=== PATIENT | female | born 1965 | race Caucasian/White ===

== ENCOUNTER 2018-08-29 07:49 | Emergency (ER) | payer OTHER ==
[~2018-08-29] VITALS: Ht 152.4 cm; Wt 81.7 kg
[~2018-08-29 07:49] MED LIST: AFRIN15 ML NS; HYDROCODONE-APA1 TA1 PO; IBUPROFEN 800800 M1 PO; LORATIDINE 10 M10 M1 PO; MEDROLDOSEPACK PO; NOHOMEMEDICATIONS; PROBIOTIC1 EAC1 PO; ZITHROMAX TRI-500 MG PO
[2018-08-29] MEDS ORDERED: VISTARIL 25 MG25 M1 PO (08:11)
[2018-08-29] MEDS ORDERED: SYNALAR120 GM TOP (08:11)
[2018-08-29 08:47] VITALS: BP 156/70
== END 2018-08-29 08:48 | disposition home or self-care (01) ==
LOC: M.ERS 07:49
DX: L25.9 Unspecified contact dermatitis, unspecified cause (principal); Z90.89 Acquired absence of other organs; Z90.49 Acquired absence of other specified parts of digestive tract

== ENCOUNTER 2018-08-31 10:46 | Emergency (ER) | payer OTHER ==
[~2018-08-31] VITALS: Ht 152.4 cm; Wt 86.2 kg
[~2018-08-31 10:46] MED LIST changes: +SYNALAR120 GM TOP; +VISTARIL 25 MG25 M1 PO
[2018-08-31] MEDS ORDERED: UNICOMPLEX M TA1 TA1 PO (10:57)
[2018-08-31] MEDS ORDERED: MUCINEX600 MG PO (10:57)
[2018-08-31] MEDS ORDERED: HYDROXYZINE HCL25 M1 PO (11:20)
[2018-08-31 11:39] VITALS: BP 116/68
== END 2018-08-31 11:40 | disposition home or self-care (01) ==
LOC: M.ERS 10:46
DX: L23.7 Allergic contact dermatitis due to plants, except food (principal); Z90.49 Acquired absence of other specified parts of digestive tract